=== PATIENT | female | born 1995 | race Caucasian/White ===

== ENCOUNTER → 2022-05-28 | Outpatient (CLI) | payer BC ==
--- NOTE | 2022-05-31 12:40 | USB ---
Reason for Exam: Clinical finding. Patient History: 01/27/2017, Ultrasound-Guided Core Biopsy on the Right side. 03/30/2018, Ultrasound-Guided Core Biopsy on the Left side. Technique: Method: Whole Breast Handheld. Prior Study Comparison: 01/10/2017 Right Diagnostic Ultrasound, [facility]. 01/27/2017 Right Diagnostic Mammogram, [facility]. 03/18/2018 Bilateral Diagnostic Ultrasound, [facility]. 03/30/2018 Left Diagnostic Mammogram, [facility]. Findings: The whole breast of the left breast, the axilla of the left breast and the retroareolar of the left breast were scanned. 1.6 x 1.2 x 2.0 cm lesion 11 o clock, 4 cfn. Patient states prior benign biopsy.. Ultrasound demonstrates prior sampling of this lesion over the lesion is appeared to have enlarged. Continued follow-up is recommended. Overall Assessment: Probably benign, BI-RAD 3 Management: Diagnostic Breast Ultrasound of the left breast. A clinical breast exam by your physician is recommended on an annual basis and results should be correlated with mammographic findings. This exam should not preclude additional follow-up of suspicious palpable abnormalities. Results were given to the patient verbally at the time of exam. Electronically signed and approved by: Karsetn Morocho M.D. Radiologis
== END | disposition home or self-care (01) ==
LOC: RADUSWWP 06:53
PROVIDERS: ATTEND Obstetrics & Gynecology
DX: N63.10 Unspecified lump in the right breast, unspecified quadrant (principal)

== ENCOUNTER 2022-10-29 14:16 | Outpatient (CLI) | payer BC ==
[2022-10-29 16:45] VITALS: BP 132/81; PULSE 92; RESP 16; TEMP 97.9
== END 2022-10-29 16:40 | disposition home or self-care (01) ==
LOC: FBPOP 14:16
PROVIDERS: ATTEND Obstetrics & Gynecology
DX: O13.3 Gestational [pregnancy-induced] hypertension without significant proteinuria, third trimester (principal); Z79.82 Long term (current) use of aspirin; Z3A.40 40 weeks gestation of pregnancy
CPT/HCPCS: 59025; 99213

== ENCOUNTER → 2022-10-29 | Outpatient (CLI) | payer BC ==
[2022-10-29 15:25] LABS: ALT 17 U/L (4-34); AST 24 U/L (14-36); African American GFR (CKD) >90 (>60 ml/min/1.73 sqM); Blood Urea Nitrogen 9 mg/dL (7-17); Non-African American GFR(CKD) >90 (>60 ml/min/1.73 sqM); Uric Acid 5.4 mg/dL (3.7-7.4)
[2022-10-29 16:06] LABS: HCT 38.4 % (34.0-46.0); HGB 12.7 gm/dL (11.4-16.0); Mean Platelet Volume 8.4; Platelet Count 260 k/uL (150-450); RBC 4.22 m/uL (3.80-5.40); RDW 13.8 % (11.5-15.5); WBC 8.5 k/uL (3.8-10.6)
[2022-10-29 16:09] LABS: Appearance,Urine Clear (Clear); Bacteria,Urine Rare /hpf; Bilirubin,Urine Negative (Negative); Blood,Urine Moderate (Negative); Glucose,Urine (UA) Negative (Negative); Leukocyte Esterase,Urine Moderate (Negative); Mucus,Urine Rare /hpf; Nitrite,Urine Negative (Negative); Protein,Urine Negative (Negative); RBC,Urine 1 /hpf (0-5); Specific Gravity,Urine 1.011 (1.001-1.035); Squamous Epithelial Cell,Urine 2 /hpf (0-4); Urobilinogen,Urine <2.0 mg/dL (<2.0); WBC,Urine <1 /hpf (0-5)
[2022-10-29 16:17] LABS: Color,Urine Light Yellow; Ketones,Urine Negative (Negative)
[2022-10-29 16:18] LABS: Protein/Creatinine Ratio,Urine 0.204
== END | disposition home or self-care (01) ==
LOC: LABWHC1 13:31
PROVIDERS: ATTEND Obstetrics & Gynecology
DX: O13.9 Gestational [pregnancy-induced] hypertension without significant proteinuria, unspecified trimester (principal); Z3A.00 Weeks of gestation of pregnancy not specified
CPT/HCPCS: 36415; 81001; 82565; 82570; 84156; 84450; 84460; 84520; 84550; 85027

== ENCOUNTER 2022-11-02 13:03 | Outpatient (CLI) | payer BC ==
[2022-11-02 13:23] VITALS: BP 135/78; PULSE 115; RESP 16; TEMP 98.3
--- NOTE | 2022-11-04 09:47 | P.MSEPDOC ---
Presenting Problems - Arrival Data Date of Arrival on Unit: 11/02/22 Time of Arrival on Unit: 13:03 Mode of Transport: Ambulatory - Complaint OB-Reason for Admission/Chief Complaint: Possible Onset of Labor Comment: pelvic pressure and cramping Medical History - Information : 1 Para: 0 Term: 0 : 0 Abortions: Spontaneous or Elective: 0 Number of Living Children: 0 - Gestational Age Gestational Age by JENAE (wks/days): 40 Weeks and 4 Days Review of Systems - Review of Systems Constitutional: No problems Breast: No problems ENT: No problems Cardiovascular: No problems Respiratory: No problems Gastrointestinal: No problems Genitourinary: No problems Musculoskeletal: No problems Neurological: No problems Skin: No problems Vital Signs - Temperature Temperature: 98.3 F Temperature Source: Temporal Artery Scan - Pulse Right Pulse Rate: 115 Pulse Assessment Method: Automatic Cuff - Respirations Respiratory Rate: 16 Oxygen Delivery Method: Room Air O2 Sat by Pulse Oximetry: 95 - Blood Pressure Right Arm Sitting Blood Pressure: 135/78 Blood Pressure Mean: 97 Blood Pressure Source: Automatic Cuff Medical Screen Scoring - Cervical Exam Dilation (cm): 2 Effacement (%): 0 Station: -3 Membranes: Intact - Uterine Contractions Frequency From (mins): 0 Frequency To (mins): 0 Duration From (seconds): 0 Duration To (seconds): 0 Resting: Soft to palpation - Assessment - Baby A Baseline FHR: 140 Heart Rate - NICHD Category: Category I (Normal) NST: Reactive Physician Notification - Physician Notified Physician Notified Date: 11/02/22 Physician Notified Time: 13:34 Physician: Alexia Gill Order Received: Yes (dc) Maternal Triage Index - Non-Urgent/Priority 4 Non-Urgent Priority 4: Yes Criteria Met for Priority 4: 40.4 rule out labor Disposition - Disposition OB Disposition: Triage, Discharge to home, Written follow up instructions reviewed Discharge Date: 11/02/22 Discharge Time: 13:40 I agree with the RN Medical Screening Exam: Yes Case reviewed; plan agreed upon as documented in EMR&OBIX.: Yes Diagnosis: rule out labor
== END 2022-11-02 13:40 | disposition home or self-care (01) ==
LOC: FBPOP 13:03
PROVIDERS: ATTEND Obstetrics & Gynecology
DX: O47.1 False labor at or after 37 completed weeks of gestation (principal); R10.2 Pelvic and perineal pain; Z3A.40 40 weeks gestation of pregnancy
CPT/HCPCS: 59025; 99213

== ENCOUNTER 2022-11-05 22:40 | Inpatient (IN) | payer BC ==
[2022-11-05] MEDS ORDERED: TRANEXAMIC 1,000 MG/100ML-NACL 1,000 MG in EMPTY BAG 1 BAG IV PRN (23:29)
[2022-11-05] MEDS ORDERED: CARBOPROST TROMETHAMINE 250 MCG/ML 1 ML AMP IM PRN (23:29)
[2022-11-05] MEDS ORDERED: OXYTOCIN 10 UNIT/ML 1 ML VIAL IM PRN (23:29)
[2022-11-05] MEDS ORDERED: LIDOCAINE 0.5% (PF) 5 MG/ML (50 ML SDV) SQ PRN (23:29)
[2022-11-05] MEDS ORDERED: METHYLERGONOVINE 0.2 MG/ML 1 ML AMP IM PRN (23:29)
[2022-11-05] MEDS ORDERED: miSOPROStoL 200 MCG TAB PO PRN (23:29)
[2022-11-05] MEDS ORDERED: TERBUTALINE 1 MG/ML VIAL SQ PRN (23:29)
[2022-11-05] MEDS: LACTATED RINGERS 1,000 ML IV SCH (23:30)
[2022-11-06 00:33] LABS: Basophils % (A) 0 %; Eosinophils # (A) 0.1 k/uL (0-0.7); Eosinophils % (A) 1 %; HCT 37.3 % (34.0-46.0); HGB 12.3 gm/dL (11.4-16.0); Lymphocytes # (A) 1.9 k/uL (1.0-4.8); Lymphocytes % (A) 12 %; MCH 29.7 pg (25.0-35.0); MCHC 33.1 g/dL (31.0-37.0); MCV 89.7 fL (80.0-100.0); Mean Platelet Volume 8.1; Monocytes # (A) 0.7 k/uL (0-1.0); Monocytes % (A) 5 %; Neutrophils # (A) 12.3 k/uL (1.3-7.7); Neutrophils % (A) 82 %; Platelet Count 256 k/uL (150-450); RBC 4.15 m/uL (3.80-5.40); RDW 13.8 % (11.5-15.5); WBC 15.1 k/uL (3.8-10.6)
[2022-11-06] MEDS: LACTATED RINGERS 1,000 ML IV SCH ×2 (01:50→04:00)
[2022-11-06] MEDS ORDERED: OXYTOCIN 30 UNITS/500 ML NS 30 UNIT in SALINE 1 500ML.BAG IV SCH (06:45)
--- NOTE | 2022-11-06 09:13 | P.HPOB ---
History of Present Illness H&P Date: 11/06/22 Chief Complaint: Contractions Ms. North is a 27 year old at 41 weeks and 1 day with EDC of 10/29/2022 (by LMP c/w 11 wk US) who presents to labor and delivery in labor and with spontaneously ruptured membranes. 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 The patient declined carrier screening during the . The fetus is estimated to be in the 58%ile by a 32 week US. work-up: blood type A positive, antibody negative, rubella immune, VDRL non-reactive, HBsAg negative, HIV negative, gonorrhea negative, chlamydia negative, 1 hour GTT 126, GBS negative. s/p TDap 08/29/2022. Past medical history: SVT s/p ablation Past surgical history: breast biopsy, left breast lumpectomy, sinus ablation Past Medical History Past Medical History: Supraventricular Tachycardia (SVT) Additional Past Medical History / Comment(s): Hx of SVT with ablasion, noncancerious lumps in breast History of Any Multi-Drug Resistant Organisms: None Reported Additional Past Surgical History / Comment(s): lump removed from breast. Past Anesthesia/Blood Transfusion Reactions: No Reported Reaction Smoking Status: Never smoker Past Drug Use History: None Reported Medications and Allergies Home Medications Medication Instructions Recorded Confirmed Type Aspirin 81 mg PO DAILY 10/29/22 11/05/22 History Iron 18 mg PO Q24HR 10/29/22 11/05/22 History Vit No.179/Iron/Folic 1 each PO DAILY 10/29/22 11/05/22 History [ Tablet] Allergies Allergy/AdvReac Type Severity Reaction Status Date / Time No Known Allergies Allergy Verified 11/05/22 22:50 Exam Vital Signs Temp Pulse Resp BP Pulse Ox 11/05/22 23:28 97.4 F L 89 16 132/87 96 11/05/22 22:49 97.5 F L 89 16 132/87 96 Intake and Output 11/05/22 11/06/22 11/06/22 22:59 06:59 14:59 Output Total 400 Balance -400 Output: Urine 400 Straight 300 Other: Weight 102.965 kg 102.965 kg Focused physical exam is performed. This is a healthy-appearing in no apparent distress. Breathing is non-labored. Patient comfortable with epidural at the time of exam. Abdomen gravid. Cervical exam deferred, but recent check by nurse is 7 centimeters. Membranes ruptured with clear amniotic fluid noted. Extremities non-tender, non-edematous. heart tones Category I. Regular uterine contractions on tocometer every 3-5 minutes. Results Result Diagrams: 11/05/22 23:32 Abnormal Lab Results - Last 24 Hours (Table) 11/05/22 Range/Units 23:32 WBC 15.1 H (3.8-10.6) k/uL Neutrophils # 12.3 H (1.3-7.7) k/uL Assessment and Plan Assessment: 27 year old at 41 weeks and 1 day presenting in labor with SROM Plan: Admit, NPO, mIVF, epidural, pitocin per protocol. Continuous EFM and tocometer. close monitoring of patient. Time with Patient: Less than 30
[2022-11-06] MEDS ORDERED: SIMETHICONE 80 MG CHEWABLE PO PRN (14:35)
[2022-11-06] MEDS ORDERED: LANOLIN CREAM 5 GM TUBE TOPICAL PRN (14:35)
[2022-11-06] MEDS ORDERED: diphenhydrAMINE 25 MG CAP PO PRN (14:35)
[2022-11-06] MEDS ORDERED: diphenhydrAMINE 50 MG/ML 1 ML VIAL IVP PRN ×2 (14:35)
[2022-11-06] MEDS ORDERED: HYDROCORTISONE 2.5% RECTAL CREAM 30 GM TUBE RECTAL PRN (14:35)
[2022-11-06] MEDS ORDERED: diphenhydrAMINE 50 MG CAP PO PRN (14:35)
[2022-11-06] MEDS ORDERED: ACETAMINOPHEN TAB 325 MG TAB PO PRN (14:35)
[2022-11-06] MEDS ORDERED: ZOLPIDEM 5 MG TAB PO PRN (14:35)
[2022-11-06] MEDS ORDERED: BENZOCAINE/MENTHOL SPRAY 1 GM/SPRAY AEROSOL TOPICAL PRN (14:35)
--- NOTE | 2022-11-06 14:35 | P.PROBDLV ---
Vaginal Delivery Note - . Vaginal Delivery Note: DATE OF SERVICE: 11/06/2022 PROCEDURE: Normal Vaginal Delivery ATTENDING: Dr. Angelia Montilla MD ESTIMATED BLOOD LOSS: 300 mL FINDINGS: VFI, Apgars 9/9. Weight 9 pounds and 8 ounces (4300 grams) PROCEDURE: Mrs. North is a 27 year old at 41 weeks and 1 day presenting to labor and delivery for labor and spontaneous rupture of membranes. The has been complicated by maternal history of genital warts for which she was taking antiviral prophylaxis from 36 weeks onwards. For further details, please review the admitting H&P. The patient received epidural anesthesia per her request. heart tones throughout the first and second stages of labor were Category I. The patient was completely dilated at 1300. A viable female infant was delivered precipitously at 1353 over a torn perineum. The infant was placed on the maternal abdomen and bulb suctioned. Cord was clamped and cut after a 60- second delay. The infant was handed off to the pediatric team. Placenta was delivered whole with gentle cord traction at 1358. Oxytocin was started to facilitate uterine tone. Uterine fundus was found to be firm and below the umbilicus upon fundal massage. Thorough examination of the cervix, vagina, periurethral area, and perineum revealed a large second degree laceration. The laceration was repaired with 2-0 and 3-0 Vicryl in the usual fashion. The patient is stable and allowed to begin the bonding process. Patient stable .
[2022-11-06 21:01] VITALS: RESP 16
[2022-11-07] MEDS: SENNOSIDES-DOCUSATE SODIUM 1 EACH TAB PO SCH ×2 (00:21→07:52)
[2022-11-07] MEDS: IBUPROFEN 600 MG TAB PO PRN ×2 (00:25→07:52)
[2022-11-07 06:57] LABS: Basophils % (A) 0 %; Eosinophils # (A) 0.1 k/uL (0-0.7); Eosinophils % (A) 1 %; HCT 33.1 % (34.0-46.0); HGB 10.8 gm/dL (11.4-16.0); Lymphocytes # (A) 2.7 k/uL (1.0-4.8); Lymphocytes % (A) 17 %; MCH 30.1 pg (25.0-35.0); MCHC 32.5 g/dL (31.0-37.0); MCV 92.7 fL (80.0-100.0); Mean Platelet Volume 7.8; Monocytes # (A) 0.9 k/uL (0-1.0); Monocytes % (A) 5 %; Neutrophils % (A) 75 %; Platelet Count 236 k/uL (150-450); RBC 3.57 m/uL (3.80-5.40); RDW 13.9 % (11.5-15.5)
--- NOTE | 2022-11-07 08:36 | P.DS ---
Providers Date of admission: 11/05/22 23:22 Expected date of discharge: 11/07/22 Attending physician: Angelia Montilla MD Primary care physician: Stated None Hospital Course: This is a 27-year-old now day #1 status post a normal vaginal delivery who is doing well this morning and desires discharge home today. The patient had no acute events overnight. She has no complaints this morning. She reports minimal lochia, passing flatus, voiding without difficulty, ambulating, and eating/drinking without nausea or vomiting. doing well at bedside and nursing well. She denies chest pain, shortness of breathing, fevers, or chills overnight. She denies pain or swelling in the legs. restrictions are reviewed with the patient including pelvic rest for 6 weeks. The patient is encouraged to call the office if she experiences any heavy bleeding, foul- smelling discharge, breast complaints, or any if she has any other concerns. She will follow up in the office in 6 weeks for exam. All questions are answered. Assessment: 27 year old PPD#1 s/p Patient Condition at Discharge: Good Plan - Discharge Summary New Discharge Prescriptions: No Action Aspirin 81 mg PO DAILY Vit No.179/Iron/Folic [ Tablet] 1 each PO DAILY Iron 18 mg PO Q24HR Discharge Medication List Aspirin 81 mg PO DAILY 10/29/22 [History] Iron 18 mg PO Q24HR 10/29/22 [History] Vit No.179/Iron/Folic [ Tablet] 1 each PO DAILY 10/29/22 [History]
[2022-11-07 08:43] VITALS: BP 106/70; PULSE 90; TEMP 98.7
[2022-11-07] MEDS ORDERED: HYDROCORTISONE SUPPOSITORY 25 MG SUPP RECTAL SCH (09:00)
== END 2022-11-07 16:00 | disposition home or self-care (01) | DRG 806 ==
LOC: FBPOP 22:40 → 4FBP 23:22
PROVIDERS: ADMIT Obstetrics & Gynecology; ATTEND Obstetrics & Gynecology
PROC: 10E0XZZ Delivery of Products of Conception, External Approach (ICD-10-PCS; principal; 2022-11-06)
PROC: 0KQM0ZZ Repair Perineum Muscle, Open Approach (ICD-10-PCS; 2022-11-06)
PROC: 3E033VJ Introduction of Other Hormone into Peripheral Vein, Percutaneous Approach (ICD-10-PCS; 2022-11-06)
DX: O42.92 Full-term premature rupture of membranes, unspecified as to length of time between rupture and onset of labor (principal); E70.1 Other hyperphenylalaninemias; Z37.0 Single live birth; O70.1 Second degree perineal laceration during delivery; O98.32 Other infections with a predominantly sexual mode of transmission complicating childbirth; A60.09 Herpesviral infection of other urogenital tract; O99.284 Endocrine, nutritional and metabolic diseases complicating childbirth; O62.3 Precipitate labor; O48.0 Post-term pregnancy; Z3A.41 41 weeks gestation of pregnancy; Z79.82 Long term (current) use of aspirin; Z86.79 Personal history of other diseases of the circulatory system
CPT/HCPCS: 59025; 84112; 85025; 86850; 86900; 86901; 99213

== ENCOUNTER → 2023-11-13 | Outpatient (CLI) | payer BC ==
--- NOTE | 2023-11-13 14:32 | USB ---
Reason for Exam: Clinical finding. Patient History: 01/27/2017, Ultrasound-Guided Core Biopsy on the Right side. 03/30/2018, Ultrasound-Guided Core Biopsy on the Left side. Technique: Method: Whole Breast Handheld. Prior Study Comparison: 01/27/2017 Right Diagnostic Mammogram, [facility]. 03/30/2018 Left Diagnostic Mammogram, [facility]. Findings: The whole breast of both breasts, the axilla of both breasts and the retroareolar of both breasts were scanned. Right breast previously sampled fibroadenomas are redemonstrated and demonstrates stable appearance and size. No new solid nodules are seen. No cysts noted. Left breast: Previously sampled fibroadenomas again noted left breast unchanged in overall morphology and size. No new lesions seen. Manage clinically. Overall Assessment: Benign, BI-RAD 2 Management: Screening Mammogram of both breasts at age 39. A clinical breast exam by your physician is recommended on an annual basis and results should be correlated with mammographic findings. This exam should not preclude additional follow-up of suspicious palpable abnormalities. Results were given to the patient verbally at the time of exam. Electronically signed and approved by: Karsten Morocho M.D. Radiologis
== END | disposition home or self-care (01) ==
LOC: RADUSWWP 13:47
PROVIDERS: ATTEND Obstetrics & Gynecology
DX: N64.4 Mastodynia (principal); R92.8 Other abnormal and inconclusive findings on diagnostic imaging of breast

== ENCOUNTER → 2024-01-27 | Outpatient (CLI) | payer BC ==
[2024-01-27 16:37] LABS: Basophils # (A) 0.03 X 10*3/uL (0.00-0.10); Basophils % (A) 0.5 %; Eosinophils # (A) 0.18 X 10*3/uL (0.04-0.35); Eosinophils % (A) 3.3 %; HCT 36.2 % (37.2-46.3); HGB 11.7 g/dL (12.0-15.0); Lymphocytes # (A) 2.35 X 10*3/uL (0.90-5.00); Lymphocytes % (A) 42.9 %; MCH 30.4 pg (27.0-32.0); MCHC 32.3 g/dL (32.0-37.0); Mean Platelet Volume 10.3 FL (9.5-12.2); Monocytes % (A) 5.5 %; NRBC Per 100 WBC 0 X 10*3/uL (0.00-0.01); Neutrophils # (A) 2.61 X 10*3/uL (1.80-7.70); Neutrophils % (A) 47.6 %; Platelet Count 332 X 10*3/uL (140-440); RBC 3.85 X 10*6/uL (4.10-5.20); RDW 13.9 % (11.5-14.5); WBC 5.48 X 10*3/uL (4.50-10.00)
== END | disposition home or self-care (01) ==
LOC: LABPAT 07:43
PROVIDERS: ATTEND Obstetrics & Gynecology
DX: Z01.812 Encounter for preprocedural laboratory examination (principal)
CPT/HCPCS: 36415; 85025

== ENCOUNTER 2024-02-05 06:24 | Day surgery (SDC) | payer BC ==
[~2024-02-05 06:24] MED LIST: HYDROmorphone 0.5 MG/0.5 ML SYRINGE IVP PRN; LIDOCAINE 1% (10MG/ML) FOR IV START INTRADERMA PRN; Pre Op ABX Message 1 EACH MISC MISCELLANE ONE; SCOPOLAMINE 1 MG/72 HR PATCH TRANSDERM ONE; droPERidol 5 MG/2 ML VIAL IVP ONE
[2024-02-05] MEDS: LACTATED RINGERS 1,000 ML IV SCH (07:09)
[2024-02-05] MEDS: ONDANSETRON 4 MG/2 ML VIAL IVP ONE (07:09)
[2024-02-05] MEDS: IV FLUID CONTINUATION 1,000 ML IV ONE (07:10)
[2024-02-05] MEDS: DEXAMETHASONE SOD PHOSPHATE 4 MG/ML 1 ML VIAL IV ONE (07:10)
[2024-02-05] MEDS ORDERED: LIDOCAINE 1% INJ 10MG/ML (20 ML MDV) ONE (07:22)
[2024-02-05] MEDS ORDERED: fentaNYL (PF) 50 MCG/ML 2 ML AMP ONE (07:22)
[2024-02-05] MEDS ORDERED: KETOROLAC 15 MG/ML 1 ML VIAL ONE (07:22)
[2024-02-05] MEDS ORDERED: PROPOFOL 10 MG/ML 20 ML VIAL IV ONE (07:22)
[2024-02-05] MEDS ORDERED: MIDAZOLAM 2 MG/2 ML VIAL ONE (07:22)
[2024-02-05] MEDS: BUPIVACAINE (PF) 0.25% 30 ML VIAL SQ ONE ×2 (07:43→08:25)
--- NOTE | 2024-02-05 08:39 | P.OP ---
Date of Procedure: 02/05/24 Preoperative Diagnosis: Bilateral labia minora hypertrophy Postoperative Diagnosis: Same Procedure(s) Performed: Bilateral labiaplasty Implants: None Anesthesia: DUSTYA Surgeon: Angelia Montilla Estimated Blood Loss (ml): 100 IV fluids (ml): 600 Urine output (ml): 0 Pathology: none sent Condition: stable Disposition: same day Indications for Procedure: Ms. North is a 29 year old with bilateral labia hypertrophy that interferes with her daily activities of living including exercise, wearing undergarments, and sexual intercourse. She desires bilateral labiaplasty. Risks, benefits, and alternatives to bilateral labiaplasty are discussed with the patient including risk of bleeding, infection, wound break down. The patient understands these risks and desires to proceed with surgery as discussed. Operative Findings: Bilateral labia minora hypertrophy with right labim measuring 5.5cm and left labium 6cm from introitus when outstretched Description of Procedure: The patient was brought into the operating suite and placed in the dorsal lithotomy position anesthesia was obtained and found to be adequate the patient was draped and prepped in the usual sterile fashion. Examination under anesthesia reveals bilateral hypertrophic labia. The marking pen is used to demarcate intended incision across bilateral labia the scalpel was used to incise bilateral labia and remove excess tissue the edges of the labia minora are then reapproximated with 3-0 and 4-0 Vicryl in an interrupted fashion. The labia are then infiltrated with 0.25% bupivacaine. Hemostasis is adequate at the conclusion of the case. All sponge, needle, and instrument counts are correct x2. The patent is brought to the recovery room in stable condition. The patient will follow up with me in the office in 2 weeks.
[2024-02-05 08:50] VITALS: RESP 16; TEMP 97.4
[2024-02-05 10:02] VITALS: BP 119/80; PULSE 60
== END 2024-02-05 10:27 | disposition home or self-care (01) ==
LOC: OR 06:24
PROVIDERS: ATTEND Obstetrics & Gynecology
DX: N90.69 Other specified hypertrophy of vulva (principal); Z86.79 Personal history of other diseases of the circulatory system
CPT/HCPCS: 81025; 56620; J2250; J1100; J2405; J2003; J3010; J1885; J2704; J0665